=== PATIENT | male | born 1975 | race Caucasian/White ===

== ENCOUNTER → 2017-12-01 | Outpatient (CLI) | payer BC ==
[2017-12-01 17:11] LABS: BASO % 0.5 %; BASO ABS # 0.03 K/uL (0-0.2); EOS ABS # 0.06 K/uL (0-0.5); HEMATOCRIT 41.7 % (42-52); HEMOGLOBIN 14.6 g/dL (14.0-18.0); IG# 0.01 K/uL (0.00-0.02); LYMPH % 41.9 %; LYMPH ABS # 2.52 K/uL (1.2-3.4); MEAN CELL VOLUME 92.3 fL (80-100); MEAN CORPUSCULAR HEMOGLOBIN 32.3 pg (25-34); MEAN PLATELET VOLUME 9.4 fL (7.4-10.4); MONO % 9.5 %; MONO ABS # 0.57 K/uL (0.11-0.59); NEUT % 46.9 %; NEUT ABS # 2.83 K/uL (1.4-6.5); PLATELET COUNT 267 K/uL (130-400); RED CELL DISTRIBUTION WIDTH CV 12.5 % (11.5-14.5); RED CELL DISTRIBUTION WIDTH SD 42.3 fL (36.4-46.3); WHITE BLOOD COUNT 6.02 K/uL (4.8-10.8)
[2017-12-01 17:21] LABS: BLOOD UREA NITROGEN 14 mg/dl (7-18); CALCIUM 9.4 mg/dl (8.5-10.1); CARBON DIOXIDE 29 mmol/L (21-32); CREATININE 1.22 mg/dl (0.60-1.40); GLUCOSE 88 mg/dl (70-99); SODIUM 138 mmol/L (136-145)
== END | disposition home or self-care (01) ==
LOC: C.LABBC 15:38
PROVIDERS: ATTEND Orthopaedic Surgery
DX: Z01.812 Encounter for preprocedural laboratory examination (principal); M75.121 Complete rotator cuff tear or rupture of right shoulder, not specified as traumatic

== ENCOUNTER → 2018-01-12 | Outpatient (CLI) | payer BC ==
[2018-01-12 16:40] LABS: BASO % 0.1 %; BASO ABS # 0.01 K/uL (0-0.2); EOS % 0.7 %; EOS ABS # 0.05 K/uL (0-0.5); HEMATOCRIT 40.1 % (42-52); HEMOGLOBIN 14.3 g/dL (14.0-18.0); IG# 0.01 K/uL (0.00-0.02); LYMPH % 36.7 %; LYMPH ABS # 2.62 K/uL (1.2-3.4); MEAN CELL VOLUME 89.7 fL (80-100); MEAN CORPUSCULAR HGB CONC 35.7 g/dl (32-36); MEAN PLATELET VOLUME 8.9 fL (7.4-10.4); MONO % 10.7 %; MONO ABS # 0.76 K/uL (0.11-0.59); NEUT % 51.7 %; NEUT ABS # 3.68 K/uL (1.4-6.5); PLATELET COUNT 277 K/uL (130-400); RED CELL DISTRIBUTION WIDTH CV 12.4 % (11.5-14.5); RED CELL DISTRIBUTION WIDTH SD 40.5 fL (36.4-46.3); WHITE BLOOD COUNT 7.13 K/uL (4.8-10.8)
[2018-01-12 17:08] LABS: BLOOD UREA NITROGEN 16 mg/dl (7-18); CALCIUM 9.4 mg/dl (8.5-10.1); CARBON DIOXIDE 28 mmol/L (21-32); CREATININE 1.24 mg/dl (0.60-1.40); GLUCOSE 98 mg/dl (70-99); SODIUM 139 mmol/L (136-145)
== END | disposition home or self-care (01) ==
LOC: C.LAB 16:16
PROVIDERS: ATTEND Orthopaedic Surgery
DX: Z01.812 Encounter for preprocedural laboratory examination (principal); M75.121 Complete rotator cuff tear or rupture of right shoulder, not specified as traumatic

== ENCOUNTER → 2018-01-22 | Day surgery (SDC) | payer BC ==
[2017-12-08 14:44] VITALS: Ht 182.9 cm; Wt 104.5 kg
[~2018-01-22] VITALS: Ht 182.9 cm; Wt 104.5 kg
[~2018-01-22] MED LIST: ATROPINE SULFATE 0.1 MG/ML 5ML SYR IV PRN; BUPIVACAINE 0.25% 30 ML VIAL ONE; CEFAZOLIN 2000MG IV PUSH 15 ML IV SCH; DEXAMETHASONE SOD INJ 4 MG/ML VIAL ONE; EpHEDrine SULFATE INJ 50 MG/ML AMP IV PRN; EpINEphrine INJ 1MG/ML AMP 1 MG/ML AMP ONE; FENTANYL CITRATE INJ 50 MCG/1 ML 2 ML VIAL IV PRN; FENTANYL CITRATE INJ 50 MCG/1 ML 2 ML VIAL ONE; KETO10TA PO; KETOROLAC TROMETHAMINE 30 MG/ML VIAL IV. PRN; LACTATED RINGER'S 1000ML 1,000 ML IV SCH; LIDOCAINE HCL 2% 2 ML VIAL (20MG/ML) ONE; MIDAZOLAM HCL 1 MG/ML 2ML VIAL ONE; ONDANSETRON INJ 2 MG/ML 2 ML VIAL IV PRN; ONDANSETRON INJ 2 MG/ML 2 ML VIAL ONE; OXYC-57 PO; OXYCODONE/ACETAMINOPHEN 5-325 TAB PO PRN; PHENYLEPHRINE HCL INJ 10 MG/ML VIAL ONE; PROPOFOL IV EMULSION 10 MG/ML 20 ML VIAL IV ONE; ROPIVACAINE 0.5% 5 MG/ML 30 ML VIAL ONE; SODIUM CHLORIDE 0.9% 1000ML 1,000 ML IV SCH
--- NOTE | 2018-01-22 10:33 | History & Physical Bridge Note ---
H&P Re-Evaluation Bridge Note: I have examined the patient, reviewed the History & Physical and in the interval since the performance of the History & Physical I have noted the following changes of clinical significance: No changes noted
--- NOTE | 2018-01-22 14:50 | [facility] Post Operative Brief Note ---
Immediate Operative Summary Operative Date Jan 22, 2018. Pre-Operative Diagnosis Right shoulder large rotator cuff tear Post-Operative Diagnosis Same as preop Procedure(s) Performed Right Shoulder Arthroscopy, Superior Capsular Reconstruction With Graft, Biceps Tenodesis Surgeon Dr. Agudelo Process Improvement Analyst Surgeon(s) Denny Peterson PA-C Estimated Blood Loss 10ML Findings Consistent with Post-Op Diagnosis Specimens None Drains None Anesthesia Type General Regional Complication(s) none Disposition Disposition: Recovery Room / PACU
--- NOTE | 2018-01-22 15:16 | Discharge Instructions-SurgCtr ---
Discharge Instructions Date of Service Jan 22, 2018. Visit Reason for Visit: Right Shoulder Full Thickness Rotator Cuff Tear Discharge Discharge Diagnosis / Problem: SAME ABOVE Discharge Goals Goal(s): Decrease discomfort, Improve function, Increase independence Activity Recommendations Activity Limitations: as noted below Lifting Limitations: until after follow-up appointment Exercise/Sports Limitations: until after follow-up appointment Shower/Bathe: tomorrow Anesthesia . Post Anesthesia Instructions: If you have had General Anesthesia or IV Sedation: * Do not drive today. * Resume driving when surgeon permits. * Do not make important decisions or sign legal documents today. * Call surgeon for: 1. Temperature elevations greater than 101 degrees F. 2. Uncontrollable pain. 3. Excessive bleeding. 4. Persistent nausea and vomiting. 5. Medication intolerance (nausea, vomiting or rash). * For nausea and vomiting use only clear liquids such as: tea, soda, bouillon until nausea subsides, then gradually increase diet as tolerated. * If you have any concerns or questions, call your surgeon's office. If physician is unavailable and it is an emergency, call 911 or go to the nearest emergency room. . Instructions / Follow-Up Instructions / Follow-Up MEDICATIONS: * Resume previous medications unless instructed otherwise by your surgeon. * Always take pain medication on a full stomach or with food to avoid upset stomach. * Do not drink alcohol or drive while taking narcotics. * Ibuprofen or Tylenol may be taken if narcotic not needed. SPECIAL CARE INSTRUCTIONS: __ None _X_ Keep extremity elevated and iced x 48 hours; apply ice 20-30 minutes 8-10 times/day. May remove at night. __ Sling __24 hrs/day __ Remove at night _X_ Shoulder Immobilizer (MAY REMOVE AFTER 48 HOURS ONLY TO SHOWER) _X_ 24 hrs/day __ Remove at night _X_ Dressing __ Maintain until seen in office, may shower with plastic over site _X_ Remove dressings in 24-48 hours and then may shower _X_ Cover incisions with band-aids after showering _X_ Do not remove steri-strips Call physician if chills or temperature rises above 102 degrees or pain unrelieved by prescribed pain medications at . . Diet Recommendations Home Diet: no limitations Fluid Restriction: None Procedures Procedures Performed: Right Shoulder Arthroscopy, Superior Capsular Reconstruction With Graft, Biceps Tenodesis Pending Studies Studies pending at discharge: no Work Instructions Return To Work: after follow-up Lifting Limitations: NO LIFTING WITH RIGHT SHOULDER Medical Emergencies . Who to Call and When: Medical Emergencies: If at any time you feel your situation is an emergency, please call 911 immediately. . Non-Emergent Contact Non-Emergency issues call your: Primary Care Provider Call Non-Emergent contact if: you have a fever, temperature is above 101.5 . . "Provider Documentation" section prepared by Denny Peterson. .
--- NOTE | 2018-01-22 15:17 | OPERATIVE REPORT ---
DATE OF OPERATION: 01/22/2018 PREOPERATIVE DIAGNOSIS: Large chronic rotator cuff tear. POSTOPERATIVE DIAGNOSIS: Same. PROCEDURE: Right shoulder diagnostic arthroscopy with extensive debridement, superior capsular reconstruction and open subpec biceps tenodesis. SURGEON: Dr. Miguel Agudelo. SAND MILLER: Nabeel Peterson PA-C, whose assistance was necessary for retraction and positioning the arm. ANESTHESIA: General with a right interscalene nerve block. COMPLICATIONS: None. CONDITION: Stable to PACU. INDICATIONS: Ginger is a pleasant 42-year-old male who injured his shoulder while cutting down some trees for firewood. He has been noticing pain and weakness of his shoulder. MRI and clinical examination were diagnostic for a large retracted possibly chronic rotator cuff tear. After failing conservative treatment, he elected to undergo arthroscopy. DESCRIPTION OF PROCEDURE: On 01/22/2018, he arrived at [facility] for the above procedure. He was taken to the preoperative holding area and the operative extremity was identified and signed. He was given a preoperative antibiotic and a right interscalene nerve block. He was taken back to the operating room, laid on the table in supine position and put under general anesthesia. He was put into the beachchair position. The right shoulder was prepped and draped in sterile fashion. Time-out was done. The patient's operative extremity was properly identified. A scope was introduced in the posterior portal. Diagnostic arthroscopy showed no cartilage damage to the humeral head or the glenoid. The biceps tendon was intact. The subscapularis was intact. There was a tear of the entire supraspinatus and upper half of the infraspinatus. It was retracted back to the level of the glenoid. The scope was put into the subacromial space. A lateral portal was made. A shaver was used to do a complete subacromial and subdeltoid bursectomy. Significant time was spent doing extensive debridement debriding all adhesions in an effort to free up the rotator cuff. An additional anterolateral portal was made. Pati cannulas were placed in each lateral portals. Attempts were made at mobilizing the rotator cuff and bring it down to the articular footprint, but I was unable to get it down, even if I medialized the articular footprint. At this point, we decided to do a superior capsular reconstruction. The top of the glenoid was debrided back to bleeding bone and the top of the greater tuberosity was debrided back to bleeding bone. Two 3.0 mm anchors were placed in the glenoid and two 4.75 mm BioComposite SwiveLock suture anchors were placed on the greater tuberosity. Measurements were made between the anchors. An Arthrex ArthroFlex graft was then prepared on the back table. It was cut and holes were made in accordance to the distance of the anchors. One of the Pati cannulas was exchanged for a passport cannula. All the sutures were pulled through the passport cannula and then through the graft. A tension slide technique was then used to deliver the graft into the joint and to snug down the medial row. The additional medial row sutures were then tied. The FiberTape sutures from the lateral row were then brought down to 1 of 2 lateral row anchors to a lateral row SwiveLock suture anchor. This gave a very nice repair laterally. Two stay sutures were placed in the posterior interval. The shoulder was brought through a full range of motion. I was very happy with the tension of the graft. Multiple pictures were taken. Arthroscopic instruments removed from the shoulder. Attention was turned to an open biceps tenodesis. A small incision was made over the inferior border of the pectoralis major. Dissection was taken down through the fascia and long head of biceps tendon was delivered out of the wound. It was tenotomized earlier intraarticularly during the case. The tendon was then whip stitched at the anticipated level of tenodesis and the remainder of the tendon was discarded. A 6 mm hole was drilled in the bicipital groove and the biceps tendon was tenodesed with an Arthrex biceps button and passed in the posterior cortex in a tension slide technique to deliver the tendon into the 6 mm hole. This gave good fixation. The tails were then tied. The wound was then irrigated, closed with 3-0 Vicryl and running 3-0 Monocryl. Steri-strips were placed. Portal sites were closed with 3-0 nylon. He then placed in a soft dressing and abduction arm sling. He was then extubated, transferred [facility] and taken to postanesthesia care unit in stable condition. He tolerated the procedure well. This case took more than twice as long as a normal rotator cuff repair. It was a complete superior capsular reconstruction. Anchors had to be placed both medially and laterally. I attest to the content of the Intraoperative Record and any orders documented therein. Any exception s are noted below.
[2018-01-22 16:00] VITALS: BP 128/72; PULSE 85; TEMP 36.5; O2SAT 95
--- NOTE | 2018-01-22 16:11 | Anesthesia Progress Nt - [facility] ---
Anesthesia Post Op Note Date & Time Jan 22, 2018 at 16:11 Vital Signs Pain Intensity: 0 Vital Signs Past 12 Hours Date Time Temp Pulse Resp B/P (MAP) Pulse Ox O2 Delivery O2 Flow Rate FiO2 01/22/18 15:51 88 19 93 01/22/18 15:51 89 19 01/22/18 15:50 124/84 01/22/18 15:50 36.6 88 20 124/84 93 Room Air 01/22/18 15:46 88 21 01/22/18 15:46 88 21 93 01/22/18 15:45 123/84 01/22/18 15:41 91 22 94 01/22/18 15:41 90 22 01/22/18 15:40 118/79 01/22/18 15:36 86 19 96 01/22/18 15:36 86 19 01/22/18 15:35 126/73 01/22/18 15:31 87 19 96 01/22/18 15:31 88 19 01/22/18 15:30 113/74 01/22/18 15:26 87 20 96 01/22/18 15:26 87 20 01/22/18 15:25 112/75 01/22/18 15:21 89 21 95 01/22/18 15:21 89 21 01/22/18 15:20 115/77 01/22/18 15:16 93 22 01/22/18 15:16 92 22 119/76 95 01/22/18 15:15 36.9 93 16 119/76 96 Mask 6 01/22/18 11:56 12 01/22/18 11:55 85 01/22/18 11:55 87 20 127/80 97 01/22/18 11:50 86 01/22/18 11:50 81 18 131/70 97 01/22/18 11:47 Oxymask 5 01/22/18 11:45 82 01/22/18 11:45 82 21 126/83 100 01/22/18 11:43 126/81 01/22/18 11:40 77 0 95 01/22/18 11:40 79 01/22/18 11:35 71 97 01/22/18 11:35 71 01/22/18 11:13 36.5 80 20 147/91 (109) 97 Room Air Notes Mental Status: alert / awake / arousable, participated in evaluation Pt Amnestic to Procedure: Yes Nausea / Vomiting: adequately controlled Pain: adequately controlled Airway Patency, RR, SpO2: stable & adequate BP & HR: stable & adequate Hydration State: stable & adequate Anesthetic Complications: no major complications apparent
== END | disposition home or self-care (01) ==
LOC: X.SURG 10:50
PROVIDERS: ATTEND Orthopaedic Surgery
DX: S46.011A Strain of muscle(s) and tendon(s) of the rotator cuff of right shoulder, initial encounter (principal); X58.XXXA Exposure to other specified factors, initial encounter; Y93.89 Activity, other specified; Z88.2 Allergy status to sulfonamides; Z82.49 Family history of ischemic heart disease and other diseases of the circulatory system; Z82.3 Family history of stroke; Z83.3 Family history of diabetes mellitus

== ENCOUNTER 2021-07-19 10:22 | Inpatient (IN) ==
[2021-07-19] MEDS ORDERED: BENZONATATE 100 MG CAPSULE PO ONE (11:04)
[2021-07-19] MEDS ORDERED: dexAMETHasone 6 MG in SYRINGE 0 ML IV ONE (11:04)
[2021-07-19] MEDS ORDERED: SODIUM CHLORIDE 0.9% 1000ML 1,000 ML IV ONE (11:04)
--- NOTE | 2021-07-19 11:13 | Emergency Department Note ---
History of Present Illness General Chief complaint: Shortness of Breath/Dyspnea Stated complaint: SOB Time Seen by Provider: 07/19/21 10:53 History of Present Illness Maximum Pain Intensity: 6 This 45-year-old male patient presents to the emergency department today for evaluation of shortness of breath. The patient states "my legs do not feel right, it feels like there is something in there". The patient states that symptoms began 9 days ago. He had cough, shortness of breath, and congestion. Patient states he is generally feeling ill and is experiencing worsening shortness of breath over the past day or 2. He was seen 2 days ago at [facility] in the emergency department where he had chest x-ray and COVID-19 testing completed. He has not received results. He states "they clearly did not want me there". The patient is not vaccinated for COVID-19. He has been taking "Advil and ibuprofen" without relief of his symptoms. He denies consistently taking cold medicine. He denies any nausea or vomiting. No numbness, tingling, weakness. He rates his generalized discomfort 4/10. Home Medications Medication Instructions Recorded Confirmed Type Ketorolac Tromethamine (TORADOL) 10 mg PO Q8 PRN #15 tab 01/22/18 Rx OXYCODONE/ACETAMINOPHEN 5MG/325MG 1 - 2 tabs PO Q6 PRN #40 tab 01/22/18 Rx (PERCOCET 5MG/325MG) No Known Home Medications 07/19/21 07/19/21 History Allergies Allergy/AdvReac Type Severity Reaction Status Date / Time Sulfa (Sulfonamide Allergy Unknown HIVES AND Verified 07/19/21 13:18 Antibiotics) FINGER SWELLING Past Med/Surg History Medical History No pertinent past medical history Surgical History (Updated 07/19/21 @ 13:42 by MAAME Jennings) H/O repair of rotator cuff Social History Smoking Status: Never smoker Feels Safe at Home: Yes Review of Systems A total of 10 systems reviewed and were otherwise negative Physical Exam Vital Signs Vital Signs - 24 hr 07/19/21 10:30 07/19/21 11:35 07/19/21 11:38 Temperature 37.4 C Temperature Source Oral Pulse Rate 96 H 90 94 H Pulse Rate from SpO2 Sensor 93 H Respiratory Rate 20 20 22 Respiratory Effort / Characteristics Non-Labored Spontaneous Respiratory Depth Normal Respiratory Pattern Blood Pressure 113/75 109/71 Blood Pressure Mean 87 83 Blood Pressure Position Sitting Pulse Oximetry 89 L 89 L 93 Oxygen Delivery Method Room Air Nasal Cannula Nasal Cannula Oxygen Flow Rate 2 2 Sepsis Recent Fever Within 48 Hours No Sepsis New/Unexplained Change in Mental Status N/A Sepsis Action Taken by Nursing No Action Required Oxygen Flow Rate - Titration 2 Pulse Oximetry Post Tiitration 94 07/19/21 12:45 Temperature Temperature Source Pulse Rate Pulse Rate from SpO2 Sensor Respiratory Rate Respiratory Effort / Characteristics Non-Labored Spontaneous Respiratory Depth Normal Respiratory Pattern Regular Blood Pressure Blood Pressure Mean Blood Pressure Position Pulse Oximetry Oxygen Delivery Method Nasal Cannula Oxygen Flow Rate 2 Sepsis Recent Fever Within 48 Hours Sepsis New/Unexplained Change in Mental Status Sepsis Action Taken by Nursing Oxygen Flow Rate - Titration Pulse Oximetry Post Tiitration VITALS: Vitals are noted on the nurse's note and reviewed by myself. Patient is hypoxic with an O2 saturation of 89% on room air. GENERAL: This is a 45-year-old white male, in no acute distress, nondiaphoretic, well-developed well-nourished. SKIN: The skin was without rashes, erythema, edema, or bruising. There is no tenting of the skin. Capillary refill less than 2 seconds. HEAD: Normocephalic atraumatic. EYES: Conjunctivae without injection, sclerae without icterus. NECK: Supple without nuchal rigidity. No lymphadenopathy. Cervical spine is nontender. No JVD. HEART: Regular rate and rhythm without murmurs gallops or rubs. LUNGS: Clear to auscultation bilaterally without wheezes, rales or rhonchi. No retractions or accessory muscle use. ABDOMEN: Positive bowel sounds x 4. Soft, nontender, without masses or orga nomegaly. Allen sign negative. No guarding or rebound tenderness. MUSCULOSKELETAL: No muscle atrophy, erythema, or edema noted. Full range of motion without joint tenderness in all extremities. No tenderness to palpation. Normal gait. Strength 5/5 throughout. Negative Homans' sign bilaterally. NEURO: Patient was alert and oriented to person place and time. No focal neurological deficits. Course Course The patient was seen and evaluated as above. An order was placed for continuous cardiac monitoring. The monitor shows a normal sinus rhythm at a rate of 96 bpm. IV access obtained, labs drawn. Patient medicated IV Decadron, IV fluids, p.o. benzonatate. Imaging performed and reviewed by myself and radiologist as noted. Labs reviewed by myself. I discussed the findings with the patient at bedside. I discussed the case with my attending. I discussed the case with Dr. Palomares. He did agree to see and evaluate the patient for admission. Administered Medications Discontinued Medications Benzonatate (Benzonatate 100 Mg Capsule) 200 mg PO NOW ONE Stop: 07/19/21 11:05 Last Admin: 07/19/21 12:51 Dose: 200 mg Documented by: [id number] Dexamethasone (Dexamethasone Sod Inj 4 Mg/Ml Vial) Confirm Administered Dose 8 mg .ROUTE .STK-MED ONE Stop: 07/19/21 12:42 Last Admin: 07/19/21 12:51 Dose: 6 mg Documented by: [id number] Sodium Chloride (Nss 1000ml) 1,000 mls @ 999 mls/hr IV .Q1H1M ONE Stop: 07/19/21 12:04 Last Infusion: 07/19/21 13:44 Dose: 0 mls/hr Documented by: [id number] Admin: 07/19/21 12:35 Dose: 999 mls/hr Documented by: [id number] Dexamethasone 6 mg/ Syringe 1.5 mls @ 1 mls/min IV ONE ONE Stop: 07/19/21 11:05 Last Admin: 07/19/21 12:51 Dose: Not Given Documented by: [id number] Medical Decision Making Differential Diagnosis Reactive airway disease, pneumonia, pneumothorax, COPD, CHF, infections, cardiac ischemia, pulmonary embolism, musculoskeletal, gastrointestinal, COVID-19, as well as other pathologies. Medical Records Attestation: I reviewed the patient's medical records. Home Medications Current Medication List: was personally reviewed by me Laboratory Data Attestation: I reviewed the patient's lab results. No leukocytosis, anemia, thrombocytopenia. Renal, hepatic function, and electrolytes without significant abnormality. Troponin negative. Proximal stent 0.7. COVID-19 testing positive. Result diagrams: 07/19/21 11:35 07/19/21 11:35 Lab Results 07/19/21 07/19/21 07/19/21 Range/Units 11:35 11:35 11:35 WBC 6.57 (4.8-10.8) K/uL RBC 4.38 L (4.7-6.1) M/uL Hgb 14.0 (14.0-18.0) g/dL Hct 41.0 L (42-52) % MCV 93.6 (80-100) fL MCH 32.0 (25-34) pg MCHC 34.1 (32-36) g/dL RDW Std Deviation 43.8 (36.4-46.3) fL RDW Coeff of Werner 12.7 (11.5-14.5) % Plt Count 221 (130-400) K/uL MPV 9.7 (7.4-10.4) fL Immature Gran % (Auto) 0.2 % Neut % (Auto) 84.0 % Lymph % (Auto) 10.0 % [place] % (Auto) 5.6 % Eos % (Auto) 0.0 % Baso % (Auto) 0.2 % Neut # (Auto) 5.52 (1.4-6.5) K/uL Lymph # (Auto) 0.66 L (1.2-3.4) K/uL [place] # (Auto) 0.37 (0.11-0.59) K/uL Eos # (Auto) 0.00 (0-0.5) K/uL Baso # (Auto) 0.01 (0-0.2) K/uL Immature Gran # (Auto) 0.01 (0.00-0.02) K/uL Fibrinogen (184-400) mg/dl Sodium 134 L (136-145) mmol/L Potassium 3.4 L (3.5-5.1) mmol/L Chloride 102 (98-107) mmol/L Carbon Dioxide 27 (21-32) mmol/L Anion Gap 5.0 (3-11) BUN 17 (7-18) mg/dl Creatinine 1.13 (0.6-1.4) mg/dl Est Cr Clr Drug Dosing 101.0 ml/min Est GFR ( Amer) 89.2 ml/min Est GFR (Non-Af Amer) 77.0 ml/min BUN/Creatinine Ratio 15.0 (10-20) Glucose 116 H (70-99) mg/dl Calcium 8.6 (8.5-10.1) mg/dl Magnesium 2.1 (1.8-2.4) mg/dl Ferritin (8-388) ng/ml Total Bilirubin 0.9 (0.2-1) mg/dl AST 80 H (15-37) U/L ALT 56 (12-78) U/L Alkaline Phosphatase 39 L (45-117) U/L Lactate Dehydrogenase (87-241) U/L Troponin I < 0.015 (0-0.045) ng/ml C-Reactive Protein (0-0.29) mg/dl NT-Pro-B Natriuret Pep (0-450) pg/ml Total Protein 7.4 (6.4-8.2) gm/dl Albumin 3.6 (3.4-5.0) gm/dl Globulin 3.8 (2.5-4.0) gm/dl Albumin/Globulin Ratio 0.9 (0.9-2) Lipase 135 (73-393) U/L Procalcitonin 0.07 (0-0.5) ng/ml COVID-19 Eval Order SARS-CoV-2 (PCR) (Negative) 07/19/21 07/19/21 07/19/21 Range/Units 11:40 11:40 13:13 WBC (4.8-10.8) K/uL RBC (4.7-6.1) M/uL Hgb (14.0-18.0) g/dL Hct (42-52) % MCV (80-100) fL MCH (25-34) pg MCHC (32-36) g/dL RDW Std Deviation (36.4-46.3) fL RDW Coeff of Werner (11.5-14.5) % Plt Count (130-400) K/uL MPV (7.4-10.4) fL Immature Gran % (Auto) % Neut % (Auto) % Lymph % (Auto) % [place] % (Auto) % Eos % (Auto) % Baso % (Auto) % Neut # (Auto) (1.4-6.5) K/uL Lymph # (Auto) (1.2-3.4) K/uL [place] # (Auto) (0.11-0.59) K/uL Eos # (Auto) (0-0.5) K/uL Baso # (Auto) (0-0.2) K/uL Immature Gran # (Auto) (0.00-0.02) K/uL Fibrinogen 639 H (184-400) mg/dl Sodium (136-145) mmol/L Potassium (3.5-5.1) mmol/L Chloride (98-107) mmol/L Carbon Dioxide (21-32) mmol/L Anion Gap (3-11) BUN (7-18) mg/dl Creatinine (0.6-1.4) mg/dl Est Cr Clr Drug Dosing ml/min Est GFR ( Amer) ml/min Est GFR (Non-Af Amer) ml/min BUN/Creatinine Ratio (10-20) Glucose (70-99) mg/dl Calcium (8.5-10.1) mg/dl Magnesium (1.8-2.4) mg/dl Ferritin (8-388) ng/ml Total Bilirubin (0.2-1) mg/dl AST (15-37) U/L ALT (12-78) U/L Alkaline Phosphatase (45-117) U/L Lactate Dehydrogenase (87-241) U/L Troponin I (0-0.045) ng/ml C-Reactive Protein (0-0.29) mg/dl NT-Pro-B Natriuret Pep (0-450) pg/ml Total Protein (6.4-8.2) gm/dl Albumin (3.4-5.0) gm/dl Globulin (2.5-4.0) gm/dl Albumin/Globulin Ratio (0.9-2) Lipase (73-393) U/L Procalcitonin (0-0.5) ng/ml COVID-19 Eval Order Covid19 at [facility] SARS-CoV-2 (PCR) POSITIVE A* (Negative) 07/19/21 07/19/21 Range/Units 13:13 13:13 WBC (4.8-10.8) K/uL RBC (4.7-6.1) M/uL Hgb (14.0-18.0) g/dL Hct (42-52) % MCV (80-100) fL MCH (25-34) pg MCHC (32-36) g/dL RDW Std Deviation (36.4-46.3) fL RDW Coeff of Werner (11.5-14.5) % Plt Count (130-400) K/uL MPV (7.4-10.4) fL Immature Gran % (Auto) % Neut % (Auto) % Lymph % (Auto) % [place] % (Auto) % Eos % (Auto) % Baso % (Auto) % Neut # (Auto) (1.4-6.5) K/uL Lymph # (Auto) (1.2-3.4) K/uL [place] # (Auto) (0.11-0.59) K/uL Eos # (Auto) (0-0.5) K/uL Baso # (Auto) (0-0.2) K/uL Immature Gran # (Auto) (0.00-0.02) K/uL Fibrinogen (184-400) mg/dl Sodium (136-145) mmol/L Potassium (3.5-5.1) mmol/L Chloride (98-107) mmol/L Carbon Dioxide (21-32) mmol/L Anion Gap (3-11) BUN (7-18) mg/dl Creatinine (0.6-1.4) mg/dl Est Cr Clr Drug Dosing ml/min Est GFR ( Amer) ml/min Est GFR (Non-Af Amer) ml/min BUN/Creatinine Ratio (10-20) Glucose (70-99) mg/dl Calcium (8.5-10.1) mg/dl Magnesium (1.8-2.4) mg/dl Ferritin 1530.6 H (8-388) ng/ml Total Bilirubin (0.2-1) mg/dl AST (15-37) U/L ALT (12-78) U/L Alkaline Phosphatase (45-117) U/L Lactate Dehydrogenase 429 H (87-241) U/L Troponin I (0-0.045) ng/ml C-Reactive Protein 9.45 H (0-0.29) mg/dl NT-Pro-B Natriuret Pep 36 (0-450) pg/ml Total Protein (6.4-8.2) gm/dl Albumin (3.4-5.0) gm/dl Globulin (2.5-4.0) gm/dl Albumin/Globulin Ratio (0.9-2) Lipase (73-393) U/L Procalcitonin (0-0.5) ng/ml COVID-19 Eval Order SARS-CoV-2 (PCR) (Negative) Imaging Data Radiologist's Impression: Chest X-Ray 07/19/21 11:05 SINGLE VIEW CHEST CLINICAL HISTORY: Cough FINDINGS: An AP, portable, upright chest radiograph is obtained No prior studies are available for comparison at the time of dictation. The cardiomediastinal silhouette is unremarkable. Multifocal airspace consolidation is seen throughout both lungs. No large pleural effusion or pneumothorax is identified. The bony thorax is grossly intact. IMPRESSION: Multifocal airspace consolidation is typical for pneumonia. Clinical correlation will be required and radiographic follow-up to resolution is recommended. ACT 112: Negative or not required by law. Electronically signed by: Armond Cano M.D. 07/19/2021 11:25 AM ECG Data Attestation: I personally reviewed and interpreted this ECG as follows: Indication: + SOB/dyspnea Rate (beats per minute): 90 Rhythm: + normal sinus ECG [place]: + Normal ECG ST segments: no ST depression, no ST elevation or no T-wave inversions Comparison ECG Date: no prior available Blood Pressure Blood Pressure Findings: Normal blood pressure MDM Narrative This 45-year-old male patient presents to the emergency department today for evaluation of worsening shortness of breath and coughing. Patient was found to have COVID-19. He was hypoxic with an O2 saturation of 89% on room air. He did desat intermittently on the oxygen as well. Patient without leukocytosis, anemia, thrombocytopenia. Renal, hepatic function and electrolytes without significant abnormalities. Patient will be admitted to the hospitalist service regarding the hypoxia in the setting of COVID-19. Please see hospitalist dictation regarding ongoing management and care of this patient. The chart was completed utilizing [employer] Speech voice recognition software. Gra mmatical errors, random word insertions, pronoun errors, and incomplete sentences are an occasional consequence of this system due to software limitations, ambient noise, and hardware issues. Any formal questions or concerns about the content, text, or information contained within the body of this dictation should be directly addressed to the provider for clarification. Impression & Plan Hypoxia, COVID-19 Discharge Plan Visit Data Chief Complaint: Shortness of Breath/Dyspnea Stated Complaint: SOB ED Provider: Miguel Bowers ED Midlevel Provider: Chel Peters Discharge Problem: Hypoxia, COVID-19 Patient Disposition: Admitted As Inpatient Forms Stand Alone Forms: [facility] Prescriptions Prescriptions: No Action Ketorolac Tromethamine (TORADOL) 10 MG tablet 10 mg PO Q8 PRN (Reason: Pain) Qty: 15 RF: 0 OXYCODONE/ACETAMINOPHEN 5MG/325MG (PERCOCET 5MG/325MG) tablet 1 - 2 tabs PO Q6 PRN (Reason: Pain) Qty: 40 RF: 0 No Known Home Medications RF: 0 Referrals Referrals: PCP,NO [Primary Care Provider] -
--- NOTE | 2021-07-19 11:26 | XRay Report ---
SINGLE VIEW CHEST CLINICAL HISTORY: Cough FINDINGS: An AP, portable, upright chest radiograph is obtained No prior studies are available for co mparison at the time of dictation. The cardiomediastinal silhouette is unremarkable. Multifocal airsp elvia consolidation is seen throughout both lungs. No large pleural effusion or pneumothorax is identif ied. The bony thorax is grossly intact. IMPRESSION: Multifocal airspace consolidation is typical for pneumonia. Clinical correlation will be required and radiographic follow-up to resolution is recommended. ACT 112: Negative or not required by law. Electronically signed by: Armond Cano M.D. 07/19/2021 11:25 AM
[2021-07-19 11:57] LABS: Basophils # (auto) 0.01 K/uL (0-0.2); Basophils % (auto) 0.2 %; Immature Granulocytes # (auto) 0.01 K/uL (0.00-0.02); Immature Granulocytes % (auto) 0.2 %; Lymphocytes # (auto) 0.66 K/uL (1.2-3.4); Mean Corpuscular Hgb Conc 34.1 g/dL (32-36); Mean Corpuscular Volume 93.6 fL (80-100); Mean Platelet Volume 9.7 fL (7.4-10.4); Monocytes # (auto) 0.37 K/uL (0.11-0.59); Monocytes % (auto) 5.6 %; Neutrophils # (auto) 5.52 K/uL (1.4-6.5); Platelet Count 221 K/uL (130-400); RDW Coefficient of Variation 12.7 % (11.5-14.5); RDW Standard Deviation 43.8 fL (36.4-46.3); Red Blood Count 4.38 M/uL (4.7-6.1); White Blood Count 6.57 K/uL (4.8-10.8)
[2021-07-19 12:19] LABS: Alanine Aminotransferase 56 U/L (12-78); Albumin Level 3.6 gm/dl (3.4-5.0); Aspartate Aminotransferase 80 U/L (15-37); Blood Urea Nitrogen 17 mg/dl (7-18); Calcium 8.6 mg/dl (8.5-10.1); Carbon Dioxide 27 mmol/L (21-32); Chloride 102 mmol/L (98-107); Est GFR (African American) 89.2 ml/min; Glucose 116 mg/dl (70-99); Lipase 135 U/L (73-393); Magnesium 2.1 mg/dl (1.8-2.4); Potassium 3.4 mmol/L (3.5-5.1); Sodium 134 mmol/L (136-145)
[2021-07-19 12:24] LABS: Albumin Globulin Ratio 0.9 (0.9-2); Alkaline Phosphatase 39 U/L (45-117); Bilirubin,Total 0.9 mg/dl (0.2-1); Globulin 3.8 gm/dl (2.5-4.0); Total Protein 7.4 gm/dl (6.4-8.2); Troponin I < 0.015 ng/ml (0-0.045)
[2021-07-19] MEDS ORDERED: DEXAMETHASONE SOD INJ 4 MG/ML VIAL ONE (12:41)
[2021-07-19] MEDS ORDERED: POLYETHYLENE (MIRALAX) 17 GM PACK PO PRN (13:20)
[2021-07-19] MEDS ORDERED: ONDANSETRON INJ 2 MG/ML 2 ML VIAL IV PRN (13:20)
[2021-07-19] MEDS ORDERED: ACETAMINOPHEN 325 MG TAB PO PRN (13:20)
[2021-07-19] MEDS ORDERED: REMDESIVIR 200 MG in SODIUM CHLORIDE 0.9% 210 ML IV ONE (13:30)
[2021-07-19] MEDS ORDERED: POTASSIUM CHLORIDE CRTAB 20 MEQ TABCR PO STA (13:51)
--- NOTE | 2021-07-19 13:53 | History & Physical Report ---
Date of Service July 19, 2021 Assessment & Plan (1) COVID-19: Plan: COVID day 9 - patient got tested on onset of his symptoms last week - Not vaccinated - CRP, BNP, PCT, Ferritin, LDH, Fibrongen pending - Continue Decadron - Albuterol inhaler PRN - Azithromycin 500mg then 250 daily - Self rotation/proning therapy -Lovenox 0.5mg/kg BID - can adjust on severity of illness and inflammatory markers as warranted - Diurese if clinically relevant (2) Hypoxia: Plan: Hypoxia with respiratory failture with RR 30, [id number]% on 2LNC - Titrate FIO2- for SPo2 >92% - NC, HFNC, CPAP/BIPAP, Intubation if needed - self rotation therapy (3) Obesity: Plan: Encourgae weight loss behavior and screening/benefit for senior care CVD benefits (4) Hypokalemia: Plan: 40 PO KCL now - decreased PO intake (5) Hypovolemia: Plan: As above recieved 1L 0.9% saline in the EMD - Continue to encourage Euvolemia - Once Euvolemia obtained follow clinically with Oxyngeation requirements History of Present Illness Primary Care Provider: NO PCP 45 YOM with no past medical history reported, not on any medications at home. Surgical history of rotator cuff repair. Patient comes in today after testing (+) for COVID on the . Patient is not vaccinated. He feels that he contracted the virus on his trip to [facility] for the race last Friday. The patient lives at home with his and two kids. He reports that his is feeling Ok and one of their kids is sick. He comes in today for increased dyspnea and fatigue, with decreased oral intake. He continues to have fevers at home, and body aches, with productive cough. He has had diarrhea which has resolved. Patient does not smoke or drink and as above on no medications at home. We discussed therapeutic options to include Remdisivir and is aware that with his time of onset he may not have any therapeutic effect. Patient wishes to receive Remdisivir. We discussed self rotation and proning therapy. Will continue his Decardorn, will add on Azithromycin, albuterol inhalers. Inflammatory markers including PCT have been sent. Patient is not vaccinated and is COVID POSITIVE on his admission. Allergies Allergy/AdvReac Type Severity Reaction Status Date / Time Sulfa (Sulfonamide Allergy Unknown HIVES AND Verified 07/19/21 13:18 Antibiotics) FINGER SWELLING Home Medications Medication Instructions Recorded Confirmed Type Ketorolac Tromethamine (TORADOL) 10 mg PO Q8 PRN #15 tab 01/22/18 Rx OXYCODONE/ACETAMINOPHEN 5MG/325MG 1 - 2 tabs PO Q6 PRN #40 tab 01/22/18 Rx (PERCOCET 5MG/325MG) No Known Home Medications 07/19/21 07/19/21 History Past Med/Surg History Medical History (Updated 07/19/21 @ 13:46 by MAAME Jennings) No pertinent past medical history Surgical History (Updated 07/19/21 @ 13:42 by MAAME Jennings) H/O repair of rotator cuff Social History Smoking Status: Never smoker Feels Safe at Home: Yes Review of Systems Review of Systems: REVIEW OF SYSTEMS: Constitutional: (+) fever, sweats or chills Eyes: No diplopia, no worsening or blurred vision ENT: normal hearing, no trouble swallowing Respiratory: (+) cough, sputum, dyspnea at rest or on exertion Cardiovascular: No chest pain, tightness or palpitations Abdomen: (+) diarrhea resovled, No pain, nausea, vomiting, or constipation Musculoskeletal: (+) joint pain, calf pain, swelling Neurologic: No weakness, numbness/tingling, or balance problems Psychiatric: No anxiety or depression Skin: No rash or itch Physical Exam Physical Exam: PHYSICAL EXAM: General: fatigued, awake, alert, no apparent distress Head: Normocephalic, atraumatic ENT: PERRL, EOMI, no pharyngeal exudate, mucous membranes moist Neuro: AAO x 3, speech clear and appropriate, strength intact bilaterally 5/5, sensation intact and equal all extremities and dermatomes, no pronator drift Chest: equal rise and fall of the chest, no accessory muscle use, no heaves or thrills, tachypneic decreased air movement in the bases scattered crackles, on 2LNC, Cardiac: Regular rate and rhythm, telemetry reviewed, skin warm dry, cap refill <3 seconds, peripheral pulses +2 no JVD, no murmur, no edema GI: NABS x 4 quadrants, soft, nontender to palpation, no rebound, guarding or tenderness : Spontaneously voiding, no pain, no CVA tenderness, Extremities: Normal inspection, no peripheral edema or erythema, calfs nontender to palpation Psych: Normal mood and affect Skin: no rash or erythema Results & Data Results & Data ([facility] [place]) Vital Signs (Past 12 Hours) Vital Signs Temp Pulse Resp BP Pulse Ox 07/19/21 11:38 94 H 22 109/71 93 07/19/21 11:35 90 20 89 L 07/19/21 10:30 37.4 C 96 H 20 113/75 89 L Laboratory Results Abnormal lab results 07/19/21 07/19/21 07/19/21 Range/Units 11:35 11:35 11:40 RBC 4.38 L (4.7-6.1) M/uL Hct 41.0 L (42-52) % Lymph # (Auto) 0.66 L (1.2-3.4) K/uL Sodium 134 L (136-145) mmol/L Potassium 3.4 L (3.5-5.1) mmol/L Glucose 116 H (70-99) mg/dl AST 80 H (15-37) U/L Alkaline Phosphatase 39 L (45-117) U/L SARS-CoV-2 (PCR) POSITIVE A* (Negative) Diagnostic Findings Chest X-Ray 07/19/21 11:05 SINGLE VIEW CHEST CLINICAL HISTORY: Cough FINDINGS: An AP, portable, upright chest radiograph is obtained No prior studies are available for comparison at the time of dictation. The cardiomediastinal silhouette is unremarkable. Multifocal airspace consolidation is seen throughout both lungs. No large pleural effusion or pneumothorax is identified. The bony thorax is grossly intact. IMPRESSION: Multifocal airspace consolidation is typical for pneumonia. Clinical correlation will be required and radiographic follow-up to resolution is recommended. ACT 112: Negative or not required by law. Electronically signed by: Armond Cano M.D. 07/19/2021 11:25 AM Medications Administered Discontinued Medications Benzonatate (Benzonatate 100 Mg Capsule) 200 mg PO NOW ONE Stop: 07/19/21 11:05 Last Admin: 07/19/21 12:51 Dose: 200 mg Documented by: [id number] Dexamethasone (Dexamethasone Sod Inj 4 Mg/Ml Vial) Confirm Administered Dose 8 mg .ROUTE .STK-MED ONE Stop: 07/19/21 12:42 Last Admin: 07/19/21 12:51 Dose: 6 mg Documented by: [id number] Sodium Chloride (Nss 1000ml) 1,000 mls @ 999 mls/hr IV .Q1H1M ONE Stop: 07/19/21 12:04 Last Infusion: 07/19/21 13:44 Dose: 0 mls/hr Documented by: [id number] Admin: 07/19/21 12:35 Dose: 999 mls/hr Documented by: [id number] Dexamethasone 6 mg/ Syringe 1.5 mls @ 1 mls/min IV ONE ONE Stop: 07/19/21 11:05 Last Admin: 07/19/21 12:51 Dose: Not Given Documented by: [id number] ECG Additional Comments: Normal sinus rhythm Incomplete right bundle branch block Borderline ECG No previous ECGs available Code Status & VTE Plan Code Status CODE: FULL VTE: SCDS, Lovenox 0.5mg/Sq BID VTE Prophylaxis Plan VTE Prophylaxis will be ordered: Yes PG Care Time/CCT Total # of Minutes Spent Total Time Spent with Patient: Total time spent is greater than 50% in coordination of care (as documented) at patient's floor/unit and/or counseling patient: Coding Level of Care Code 73315 Initial Inpt Care Lvl 3 Diagnoses COVID-19 U07.1 Hypoxia R09.02 Obesity E66.9 Hypokalemia E87.6 Hypovolemia E86.1
[2021-07-19 13:54] LABS: C Reactive Protein 9.45 mg/dl (0-0.29); Ferritin 1530.6 ng/ml (8-388); Fibrinogen 639 mg/dl (184-400)
[2021-07-19] MEDS: SODIUM CHLORIDE 0.9% 10ML FLUSH IV SCH (16:56)
--- NOTE | 2021-07-19 18:04 | Electrocardiogram Report ---
Test Reason : Blood Pressure : / mmHG Vent. Rate : 090 BPM Atrial Rate : 090 BPM P-R Int : 156 ms QRS Dur : 098 ms QT Int : 354 ms P-R-T Axes : 027 -10 014 degrees QTc Int : 433 ms Normal sinus rhythm Incomplete right bundle branch block Borderline ECG No previous ECGs available Confirmed by Sal Tolbert ([id number]) on 07/19/2021 6:04:00 PM Referred By: REFERRED SELF Confirmed By:Sal Tolbert
[2021-07-19 19:59] LABS: Appearance Urine Clear (Clear); Bacteria Urine Automated Negative (Negative); Blood Urine Trace (Negative); Color Urine Dark Yellow; Epithelial Cell Urine Auto 20-30 /lpf (0-5); Glucose Urine UA Negative (Negative); Ketones Urine 3+ (Negative); Leukocyte Esterase Urine Negative (Negative); Nitrite Urine Negative (Negative); Protein Urine 2+ (Negative); RBC Urine Automated 0-4 /hpf (0-4); Specific Gravity Urine 1.041 (1.000-1.030); Urobilinogen Urine Positive (Negative)
[2021-07-19 20:05] LABS: Bilirubin Urine 1+ (Negative)
[2021-07-19] MEDS ORDERED: ALBUTEROL 0.083% NEBU SOLN 3 ML VIAL NEB PRN (22:36)
[2021-07-19] MEDS ORDERED: AZITHROMYCIN 250 MG TAB PO STA (22:54)
[2021-07-19] MEDS: dexAMETHasone 6 MG in SYRINGE 0 ML IV SCH (23:25)
[2021-07-19] MEDS: ENOXAPARIN INJ 60 MG/0.6 ML SYR SQ SCH (23:26)
[2021-07-20 08:44] LABS: Basophils # (auto) 0.01 K/uL (0-0.2); Basophils % (auto) 0.2 %; Hematocrit (blood only) 37.9 % (42-52); Hemoglobin 12.7 g/dL (14.0-18.0); Immature Granulocytes # (auto) 0.01 K/uL (0.00-0.02); Immature Granulocytes % (auto) 0.2 %; Lymphocytes # (auto) 0.79 K/uL (1.2-3.4); Lymphocytes % (auto) 12.2 %; Mean Corpuscular Hemoglobin 31.8 pg (25-34); Mean Corpuscular Hgb Conc 33.5 g/dL (32-36); Mean Corpuscular Volume 94.8 fL (80-100); Mean Platelet Volume 9.5 fL (7.4-10.4); Monocytes # (auto) 0.36 K/uL (0.11-0.59); Monocytes % (auto) 5.6 %; Neutrophils # (auto) 5.29 K/uL (1.4-6.5); Neutrophils % (auto) 81.8 %; Platelet Count 260 K/uL (130-400); RDW Coefficient of Variation 12.9 % (11.5-14.5); RDW Standard Deviation 45.1 fL (36.4-46.3); White Blood Count 6.46 K/uL (4.8-10.8)
[2021-07-20] MEDS ORDERED: dexAMETHasone 6 MG in SYRINGE 0 ML IV SCH (09:00)
[2021-07-20 09:09] LABS: BUN Creatinine Ratio 19.5 (10-20); Calcium 8.5 mg/dl (8.5-10.1); Creatinine Clr Calc Pharmacy 116.5 ml/min; Est GFR (Non-African American) 91.4 ml/min; Magnesium 2.1 mg/dl (1.8-2.4); Potassium 3.9 mmol/L (3.5-5.1)
[2021-07-20] MEDS: ENOXAPARIN INJ 60 MG/0.6 ML SYR SQ SCH ×2 (11:45→22:27)
[2021-07-20] MEDS: REMDESIVIR 100 MG in SODIUM CHLORIDE 0.9% 230 ML IV SCH (11:45)
[2021-07-20] MEDS: SODIUM CHLORIDE 0.9% 10ML FLUSH IV SCH (13:10)
--- NOTE | 2021-07-20 20:40 | Hospitalist Progress Note ---
Date of Service July 20, 2021 Assessment & Plan (1) COVID-19: Plan: COVID day 10 - patient got tested on onset of his symptoms last week - Not vaccinated -Patient remains on nasal cannula. - Continue Decadron - Albuterol inhaler PRN - Azithromycin 500mg then 250 daily - Self rotation/proning therapy -Lovenox 0.5mg/kg BID - can adjust on severity of illness and inflammatory markers as warranted - Diurese if clinically relevant (2) Hypoxia: Plan: Hypoxia with respiratory failture with RR 30, DMA008% on 2LNC - Titrate FIO2- for SPo2 >92% - NC, HFNC, CPAP/BIPAP, Intubation if needed - self rotation therapy (3) Obesity: Plan: Encourgae weight loss behavior and screening/benefit for [facility] CVD benefits (4) Hypokalemia: Plan: 40 PO KCL now - decreased PO intake (5) Hypovolemia: Plan: As above recieved 1L 0.9% saline in the EMD - Continue to encourage Euvolemia - Once Euvolemia obtained follow clinically with Oxyngeation requirements Admission and Anticipated Discharge Date Admission Date: July 19, 2021 Subjective Patient reports breathing better today. Review of Systems Review of Systems: All systems reviewed & are unremarkable except as noted in HPI & below Physical Exam Physical Exam: General: fatigued, awake, alert, no apparent distress Head: Normocephalic, atraumatic ENT: PERRL, EOMI, no pharyngeal exudate, mucous membranes moist Neuro: AAO x 3, speech clear and appropriate, strength intact bilaterally 5/5, sensation intact and equal all extremities and dermatomes, no pronator drift Chest: equal rise and fall of the chest, no accessory muscle use, no heaves or thrills, tachypneic decreased air movement in the bases scattered crackles, on 2LNC, Cardiac: Regular rate and rhythm, telemetry reviewed, skin warm dry, cap refill <3 seconds, peripheral pulses +2 no JVD, no murmur, no edema GI: NABS x 4 quadrants, soft, nontender to palpation, no rebound, guarding or tenderness : Spontaneously voiding, no pain, no CVA tenderness, Extremities: Normal inspection, no peripheral edema or erythema, calfs nontender to palpation Psych: Normal mood and affect Skin: no rash or erythema Results & Data Results & Data ([facility]) Vital Signs (Past 12 Hours) Vital Signs Temp Pulse Pulse Resp BP Pulse Ox 07/20/21 15:32 81 07/20/21 12:33 37.0 C 81 22 123/75 90 07/20/21 09:14 90 PG Care Time/CCT Total # of Minutes Spent Total Time Spent with Patient: Total time spent is greater than 50% in coordination of care (as documented) at patient's floor/unit and/or counseling patient: Coding Level of Care Code 97054 Subseq Hosp Care Lvl 2 Diagnoses COVID-19 U07.1 Hypoxia R09.02 Obesity E66.9 Hypokalemia E87.6 Hypovolemia E86.1 Time Spent (min) 25
[2021-07-20] MEDS: AZITHROMYCIN 250 MG TAB PO SCH (22:26)
[2021-07-20] MEDS: dexAMETHasone 6 MG in SYRINGE 0 ML IV SCH (22:27)
[2021-07-20] MEDS: ALBUTEROL HFA 8 GM INHALER INH PRN (23:29)
[2021-07-21 05:55] LABS: Hematocrit (blood only) 41.9 % (42-52); Hemoglobin 14.2 g/dL (14.0-18.0); Mean Corpuscular Hemoglobin 32.6 pg (25-34); Mean Corpuscular Hgb Conc 33.9 g/dL (32-36); Mean Corpuscular Volume 96.1 fL (80-100); Mean Platelet Volume 9.3 fL (7.4-10.4); Platelet Count 338 K/uL (130-400); RDW Coefficient of Variation 12.9 % (11.5-14.5); RDW Standard Deviation 45.7 fL (36.4-46.3); Red Blood Count 4.36 M/uL (4.7-6.1); White Blood Count 8.65 K/uL (4.8-10.8)
[2021-07-21 06:26] LABS: BUN Creatinine Ratio 23.6 (10-20); Creatinine Clr Calc Pharmacy 114.1 ml/min; Est GFR (African American) 103.4 ml/min; Est GFR (Non-African American) 89.2 ml/min; Magnesium 2.5 mg/dl (1.8-2.4); Potassium 4.3 mmol/L (3.5-5.1)
[2021-07-21 06:29] LABS: C Reactive Protein 5.22 mg/dl (0-0.29)
[2021-07-21 06:37] LABS: Basophils # (auto) 0.04 K/uL (0-0.2); Basophils % (auto) 0.5 %; Immature Granulocytes # (auto) 0.03 K/uL (0.00-0.02); Immature Granulocytes % (auto) 0.3 %; Lymphocytes # (auto) 0.89 K/uL (1.2-3.4); Lymphocytes % (auto) 10.3 %; Monocytes % (auto) 6.9 %; Neutrophils # (auto) 7.09 K/uL (1.4-6.5); RBC Morphology Unremarkable
--- NOTE | 2021-07-21 07:56 | XRay Report ---
XR chest 1V portable HISTORY: 45 years-old Male covid 19 acute cough with viral pneumonia COMPARISON: Chest radiograph 07/19/2021 TECHNIQUE: Portable AP view of the chest FINDINGS: Cardiomediastinal and hilar silhouettes are unchanged. Moderately worsened multifocal bilateral airsp elvia opacities. No pneumothorax or large pleural effusion. No acute fracture. IMPRESSION: Multifocal pneumonia has moderately progressed from comparison. ACT 112: Negative or not required by law. The above report was generated using voice recognition software. It may contain grammatical, syntax o r spelling errors. Electronically signed by: Christian Juarez M.D. 07/21/2021 7:55 AM
[2021-07-21] MEDS: ENOXAPARIN INJ 60 MG/0.6 ML SYR SQ SCH ×2 (12:17→22:09)
[2021-07-21] MEDS: REMDESIVIR 100 MG in SODIUM CHLORIDE 0.9% 230 ML IV SCH (12:17)
[2021-07-21] MEDS: SODIUM CHLORIDE 0.9% 10ML FLUSH IV SCH (12:18)
--- NOTE | 2021-07-21 20:08 | Hospitalist Progress Note ---
Date of Service July 21, 2021 Assessment & Plan (1) COVID-19: Plan: COVID day 10 - patient got tested on onset of his symptoms last week - Not vaccinated -Patient increased to 15 liters nasal cannula overnight but he is not tolerating it. Will place patient on high flow oxygen. - Continue Decadron - Albuterol inhaler PRN - Azithromycin 500mg then 250 daily - Self rotation/proning therapy -Lovenox 0.5mg/kg BID - can adjust on severity of illness and inflammatory markers as warranted - Diurese if clinically relevant will monitor C-R-P. It is improving. Updated . Patient again was told that he needs to prone about 10-15 hours a day. will also update patient. (2) Hypoxia: Plan: Hypoxia with respiratory failture with RR 30, UKU099% on 2LNC - Titrate FIO2- for SPo2 >92% - NC, HFNC, CPAP/BIPAP, Intubation if needed - self rotation therapy (3) Obesity: Plan: Encourgae weight loss behavior and screening/benefit for long-term CVD benefits (4) Hypokalemia: Plan: 40 PO KCL now - decreased PO intake (5) Hypovolemia: Plan: As above recieved 1L 0.9% saline in the EMD - Continue to encourage Euvolemia - Once Euvolemia obtained follow clinically with Oxyngeation requirements Admission and Anticipated Discharge Date Admission Date: July 19, 2021 Subjective Patient reports feeling more short of breath. He reports he having difficulty breathing. He reports he is open to prone. Review of Systems Review of Systems: All systems reviewed & are unremarkable except as noted in HPI & below Physical Exam Physical Exam: General: fatigued, awake, alert, no apparent distress Head: Normocephalic, atraumatic ENT: PERRL, EOMI, no pharyngeal exudate, mucous membranes moist Neuro: AAO x 3, speech clear and appropriate, strength intact bilaterally 5/5, sensation intact and equal all extremities and dermatomes, no pronator drift Chest: equal rise and fall of the chest, no accessory muscle use, no heaves or thrills, tachypneic decreased air movement in the bases scattered crackles, on 2LNC, Cardiac: Regular rate and rhythm, telemetry reviewed, skin warm dry, cap refill <3 seconds, peripheral pulses +2 no JVD, no murmur, no edema GI: NABS x 4 quadrants, soft, nontender to palpation, no rebound, guarding or tenderness : Spontaneously voiding, no pain, no CVA tenderness, Extremities: Normal inspection, no peripheral edema or erythema, calfs nontender to palpation Psych: Normal mood and affect Skin: no rash or erythema Results & Data Results & Data ([facility]) Vital Signs (Past 12 Hours) Vital Signs Temp Pulse Pulse Resp BP Pulse Ox 07/21/21 16:00 73 07/21/21 15:15 87 20 90 07/21/21 13:29 36.6 C 82 22 117/72 93 07/21/21 11:19 84 20 90 07/21/21 08:53 76 07/21/21 08:43 82 20 90 PG Care Time/CCT Total # of Minutes Spent Total Time Spent with Patient: Total time spent is greater than 50% in coordination of care (as documented) at patient's floor/unit and/or counseling patient: Coding Level of Care Code 32840 Subseq Hosp Care Lvl 3 Diagnoses COVID-19 U07.1 Hypoxia R09.02 Obesity E66.9 Hypokalemia E87.6 Hypovolemia E86.1 Time Spent (min) 35
[2021-07-21] MEDS: AZITHROMYCIN 250 MG TAB PO SCH (22:08)
[2021-07-21] MEDS: dexAMETHasone 6 MG in SYRINGE 0 ML IV SCH (22:09)
[2021-07-21] MEDS ORDERED: MELATONIN 3 MG TAB PO PRN (23:07)
[2021-07-21] MEDS ORDERED: MELATONIN 3 MG TAB PO ONE (23:15)
[2021-07-22 06:41] LABS: Hematocrit (blood only) 40.4 % (42-52); Mean Corpuscular Hgb Conc 34.7 g/dL (32-36); Mean Corpuscular Volume 92.4 fL (80-100); Mean Platelet Volume 9.1 fL (7.4-10.4); Platelet Count 382 K/uL (130-400); RDW Coefficient of Variation 12.7 % (11.5-14.5); RDW Standard Deviation 43.4 fL (36.4-46.3); Red Blood Count 4.37 M/uL (4.7-6.1); White Blood Count 8.09 K/uL (4.8-10.8)
[2021-07-22 07:08] LABS: Basophils # (auto) 0.11 K/uL (0-0.2); Basophils % (auto) 1.4 %; Immature Granulocytes # (auto) 0.06 K/uL (0.00-0.02); Immature Granulocytes % (auto) 0.7 %; Lymphocytes # (auto) 1.06 K/uL (1.2-3.4); Lymphocytes % (auto) 13.1 %; Monocytes # (auto) 0.87 K/uL (0.11-0.59); Monocytes % (auto) 10.8 %; Neutrophils # (auto) 5.99 K/uL (1.4-6.5)
[2021-07-22 07:21] LABS: BUN Creatinine Ratio 29.2 (10-20); Est GFR (African American) 111.5 ml/min; Est GFR (Non-African American) 96.2 ml/min; Magnesium 2.5 mg/dl (1.8-2.4); Potassium 4.3 mmol/L (3.5-5.1)
[2021-07-22] MEDS: REMDESIVIR 100 MG in SODIUM CHLORIDE 0.9% 230 ML IV SCH (11:27)
[2021-07-22] MEDS: ENOXAPARIN INJ 60 MG/0.6 ML SYR SQ SCH ×2 (11:28→22:15)
[2021-07-22] MEDS: SODIUM CHLORIDE 0.9% 10ML FLUSH IV SCH (12:28)
--- NOTE | 2021-07-22 16:50 | Hospitalist Progress Note ---
Date of Service July 22, 2021 Assessment & Plan (1) COVID-19: Plan: COVID day 10 - patient got tested on onset of his symptoms last week - Not vaccinated -Patient increased to 15 liters nasal cannula overnight and was not tolerating it on 07/21. Will place patient on high flow oxygen: 07/21 Patient appears stable today 07/22 C-reactive protein has improved. Patient has been proning. - Continue Decadron at 6 mg iV daily - Albuterol inhaler PRN - Azithromycin 500mg then 250 daily - Self rotation/proning therapy -Lovenox 0.5mg/kg BID - can adjust on severity of illness and inflammatory markers as warranted - Diurese if clinically relevant will monitor C-R-P. It is improving. Updated daily (2) Hypoxia: Plan: Hypoxia with respiratory failture - Titrate FIO2- for SPo2 >92% - NC, HFNC, CPAP/BIPAP, Intubation if needed - self rotation therapy (3) Obesity: Plan: Encourgae weight loss behavior and screening/benefit for [facility] CVD benefits (4) Hypokalemia: Plan: 40 PO KCL now - decreased PO intake (5) Hypovolemia: Plan: As above recieved 1L 0.9% saline in the EMD - Continue to encourage Euvolemia - Once Euvolemia obtained follow clinically with Oxyngeation requirements Admission and Anticipated Discharge Date Admission Date: July 19, 2021 Subjective Patient reports feeling better. Review of Systems Review of Systems: All systems reviewed & are unremarkable except as noted in HPI & below Physical Exam Physical Exam: General: fatigued, awake, alert, no apparent distress Head: Normocephalic, atraumatic ENT: PERRL, EOMI, no pharyngeal exudate, mucous membranes moist Neuro: AAO x 3, speech clear and appropriate, strength intact bilaterally 5/5, sensation intact and equal all extremities and dermatomes, no pronator drift Chest: equal rise and fall of the chest, no accessory muscle use, no heaves or thrills, tachypneic decreased air movement in the bases scattered crackles, on high flow oxygen. Cardiac: Regular rate and rhythm, telemetry reviewed, skin warm dry, cap refill <3 seconds, peripheral pulses +2 no JVD, no murmur, no edema GI: NABS x 4 quadrants, soft, nontender to palpation, no rebound, guarding or tenderness : Spontaneously voiding, no pain, no CVA tenderness, Extremities: Normal inspection, no peripheral edema or erythema, calfs nontender to palpation Psych: Normal mood and affect Skin: no rash or erythema Results & Data Results & Data ([facility]) Vital Signs (Past 12 Hours) Vital Signs Temp Pulse Resp BP Pulse Ox 07/22/21 15:47 82 18 114/74 88 L 07/22/21 15:27 70 18 93 07/22/21 11:30 36.5 C 78 18 116/70 95 07/22/21 11:18 86 18 91 07/22/21 09:34 83 18 90 07/22/21 08:20 36.5 C 82 18 115/77 90 07/22/21 07:36 80 18 90 PG Care Time/CCT Total # of Minutes Spent Total Time Spent with Patient: Total time spent is greater than 50% in coordination of care (as documented) at patient's floor/unit and/or counseling patient: Coding Level of Care Code 42060 Subseq Hosp Care Lvl 2 Diagnoses COVID-19 U07.1 Hypoxia R09.02 Obesity E66.9 Hypokalemia E87.6 Hypovolemia E86.1 Time Spent (min) 25
[2021-07-22] MEDS: AZITHROMYCIN 250 MG TAB PO SCH (22:14)
[2021-07-22] MEDS: dexAMETHasone 6 MG in SYRINGE 0 ML IV SCH (22:15)
[2021-07-23 07:07] LABS: Base Excess ABG 0.7 mEq/L (-9-1.8); HCO3 ABG 23 mmol/L (19-24); Oxygen Saturation ABG 93.4 % (90-95); PCO2 ABG 30 mmHg (35-46); PO2 ABG 62 mmHg (80-95)
[2021-07-23 07:14] LABS: Alanine Aminotransferase 188 U/L (12-78); Aspartate Aminotransferase 117 U/L (15-37)
[2021-07-23 07:16] LABS: Allen Test Pos (Pos)
[2021-07-23] MEDS: ALBUTEROL HFA 8 GM INHALER INH PRN (08:43)
[2021-07-23] MEDS ORDERED: Nursing to Pharmacy Communication SCH (09:15)
[2021-07-23] MEDS: dexAMETHasone 6 MG in SYRINGE 0 ML IV SCH (12:19)
[2021-07-23] MEDS: REMDESIVIR 100 MG in SODIUM CHLORIDE 0.9% 230 ML IV SCH (12:19)
[2021-07-23] MEDS: ENOXAPARIN INJ 60 MG/0.6 ML SYR SQ SCH ×2 (12:20→22:08)
[2021-07-23] MEDS: SODIUM CHLORIDE 0.9% 10ML FLUSH IV SCH (12:21)
--- NOTE | 2021-07-23 12:42 | Hospitalist Progress Note ---
Date of Service July 23, 2021 Assessment & Plan (1) COVID-19: Plan: Initial positive test on first day of symptoms (believe on 07/11/2021). Not vaccinated. - Continue remdesivir (End date: 07/23/2021) - Continue azithromycin (End date: 07/23/2021) - Self rotation/proning therapy - Continue Decadron 6 mg IV daily (End date: 07/28 for 10 days) -> Discussed tocilizumab with pharmacy and pulmonary. He is Day 4, but had decompensation on Day 3. His CRP is < 7.5, but was > 7.5 on admission. Pulmonary felt that given his CRP improvement, he would not benefit. (2) DVT prophylaxis: Plan: Lovenox 50 mg SQ BID Admission and Anticipated Discharge Date Admission Date: July 19, 2021 Subjective Stable today. No shortness of breath while lying flat. No cough. However, weak and shortness of breath is bad enough that he didn't feel well enough to sit up. Physical Exam Constitutional: WD/WN, vitals as above Eyes: EOM intact bilaterally; no conjunctival abnormality ENMT: external ear and nose normal, oropharynx normal Neck: trachea midline, no thyromegaly normal visual inspection Respiratory: + labored breathing and + tachypneic; no respiratory distress and no cough Auscultation: + crackles (L > R) Cardiovascular: RRR, no murmur, no edema Gastrointestinal (Abdomen): Inspection/Auscultation: abdomen normal to inspection; abdomen not distended Musculoskeletal: no cyanosis or clubbing, extremities motor strength 5/5 Skin: no rashes, warm and dry Neurologic: moves all extremities and awake Psychiatric: Orientation: alert, oriented to person and cooperative Results & Data Results & Data ([facility]) Vital Signs (Past 12 Hours) Vital Signs Temp Pulse Resp BP Pulse Ox 07/23/21 12:00 37.2 C 108 H 122/72 91 07/23/21 11:02 102 H 20 91 07/23/21 08:44 93 H 26 H 91 07/23/21 08:09 36.7 C 108 H 21 88 L 07/23/21 02:51 36.9 C 99 H 16 127/83 90 PG Care Time/CCT Total # of Minutes Spent Total Time Spent with Patient: Total time spent is greater than 50% in coordin ation of care (as documented) at patient's floor/unit and/or counseling patient: Coding Level of Care Code 28373 Subseq Hosp Care Lvl 3 Diagnoses COVID-19 U07.1 DVT prophylaxis Z29.9
[2021-07-23] MEDS: AZITHROMYCIN 250 MG TAB PO SCH (22:08)
[2021-07-24 08:14] LABS: Hematocrit (blood only) 39.1 % (42-52); Hemoglobin 13.7 g/dL (14.0-18.0); Mean Corpuscular Hemoglobin 32.5 pg (25-34); Mean Corpuscular Volume 92.7 fL (80-100); Mean Platelet Volume 9.3 fL (7.4-10.4); Platelet Count 438 K/uL (130-400); RDW Coefficient of Variation 12.6 % (11.5-14.5); RDW Standard Deviation 42.5 fL (36.4-46.3); Red Blood Count 4.22 M/uL (4.7-6.1); White Blood Count 12.52 K/uL (4.8-10.8)
[2021-07-24 08:44] LABS: Albumin Level 2.9 gm/dl (3.4-5.0); BUN Creatinine Ratio 24.9 (10-20); Est GFR (African American) 104.7 ml/min; Est GFR (Non-African American) 90.3 ml/min; Magnesium 2.5 mg/dl (1.8-2.4); Potassium 3.9 mmol/L (3.5-5.1)
[2021-07-24 08:47] LABS: Albumin Globulin Ratio 0.7 (0.9-2); Bilirubin,Total 1.1 mg/dl (0.2-1); Globulin 4.3 gm/dl (2.5-4.0); Total Protein 7.2 gm/dl (6.4-8.2)
[2021-07-24] MEDS: dexAMETHasone 6 MG in SYRINGE 0 ML IV SCH (12:30)
[2021-07-24] MEDS: ENOXAPARIN INJ 60 MG/0.6 ML SYR SQ SCH ×2 (12:30→22:12)
--- NOTE | 2021-07-24 15:18 | Hospitalist Progress Note ---
Date of Service July 24, 2021 Assessment & Plan (1) COVID-19: Plan: Initial positive test on first day of symptoms (believe on 07/11/2021). Not vaccinated. Pneumonia due to coronavirus disease 2019. - Finished remdesivir (End date: 07/23/2021) - Finished azithromycin (End date: 07/23/2021) - Self rotation/proning therapy - Continue Decadron 6 mg IV daily (End date: 07/28 for 10 days) -> Discussed tocilizumab with pharmacy and pulmonary. He is Day 4, but had decompensation on Day 3. His CRP is < 7.5, but was > 7.5 on admission. Pulmonary felt that given his CRP improvement, he would not benefit. -> Improved today. Lowering his HFNC. (2) DVT prophylaxis: Plan: Lovenox 50 mg SQ BID Admission and Anticipated Discharge Date Admission Date: July 19, 2021 Subjective Improved today. No shortness of breath while lying flat. No cough. Some increased energy. No appetite yet. Reports no fevers/chills, chest pain, abdominal pain, nausea, or vomiting. Physical Exam Constitutional: WD/WN, vitals as above Eyes: EOM intact bilaterally; no conjunctival abnormality ENMT: external ear and nose normal, oropharynx normal Neck: trachea midline, no thyromegaly normal visual inspection Respiratory: + labored breathing and + tachypneic; no respiratory distress and no cough Auscultation: + crackles (L > R) Cardiovascular: RRR, no murmur, no edema Gastrointestinal (Abdomen): Inspection/Auscultation: abdomen normal to inspection; abdomen not distended Musculoskeletal: no cyanosis or clubbing, extremities motor strength 5/5 Skin: no rashes, warm and dry Neurologic: moves all extremities and awake Psychiatric: Orientation: alert, oriented to person and cooperative Results & Data Results & Data ([facility]) Vital Signs (Past 12 Hours) Vital Signs Temp Pulse Pulse Resp BP Pulse Ox 07/24/21 12:31 36.6 C 96 H 18 109/72 97 07/24/21 08:50 36.8 C 85 20 110/68 94 07/24/21 07:36 70 07/24/21 07:09 84 22 91 07/24/21 04:04 36.6 C 80 20 108/71 94 PG Care Time/CCT Total # of Minutes Spent Total Time Spent with Patient: Total time spent is greater than 50% in coordination of care (as documented) at patient's floor/unit and/or counseling patient: Coding Level of Care Code 22663 Subseq Hosp Care Lvl 2 Diagnoses COVID-19 U07.1 DVT prophylaxis Z29.9
[2021-07-25] MEDS: ENOXAPARIN INJ 60 MG/0.6 ML SYR SQ SCH ×2 (11:36→21:06)
[2021-07-25] MEDS: dexAMETHasone 6 MG in SYRINGE 0 ML IV SCH (11:38)
--- NOTE | 2021-07-25 12:37 | Hospitalist Progress Note ---
Date of Service July 25, 2021 Assessment & Plan (1) COVID-19: Plan: Initial positive test on first day of symptoms (believe on 07/11/2021). Not vaccinated. Pneumonia due to coronavirus disease 2018. - Finished remdesivir (End date: 07/23/2021) - Finished azithromycin (End date: 07/23/2021) - Self rotation/proning therapy - Continue Decadron 6 mg IV daily (End date: 07/28 for 10 days) -> Discussed tocilizumab with pharmacy and pulmonary. His CRP was < 7.5, but was > 7.5 on admission. Pulmonary felt that given his CRP improvement, he would not benefit. -> Improved today. Off high-flow, and now on 15L. Good O2 sat while resting, but does dip with exertion. (2) DVT prophylaxis: Plan: Lovenox 50 mg SQ BID Admission and Anticipated Discharge Date Admission Date: July 19, 2021 Subjective Improved today. No shortness of breath while lying flat. No cough. Some increased energy & appetite. Does get shortness of breath with moving. Reports no fevers/chills, chest pain, abdominal pain, nausea, or vomiting. Physical Exam Constitutional: WD/WN, vitals as above Eyes: EOM intact bilaterally; no conjunctival abnormality ENMT: external ear and nose normal, oropharynx normal Neck: trachea midline, no thyromegaly normal visual inspection Respiratory: no respiratory distress, no labored breathing and no cough Auscultation: lungs clear to auscultation bilaterally Cardiovascular: RRR, no murmur, no edema Gastrointestinal (Abdomen): Inspection/Auscultation: abdomen normal to inspection; abdomen not distended Musculoskeletal: no cyanosis or clubbing, extremities motor strength 5/5 Skin: no rashes, warm and dry Neurologic: moves all extremities and awake Psychiatric: Orientation: alert, oriented to person and cooperative Results & Data Results & Data ([facility]) Vital Signs (Past 12 Hours) Vital Signs Temp Pulse Pulse Resp BP Pulse Ox 07/25/21 07:29 36.4 C L 82 20 109/72 92 07/25/21 07:16 73 07/25/21 03:38 36.4 C L 80 16 111/72 87 L PG Care Time/CCT Total # of Minutes Spent Total Time Spent with Patient: Total time spent is greater than 50% in coordination of care (as documented) at patient's floor/unit and/or counseling patient: Coding Level of Care Code 13389 Subseq Hosp Care Lvl 2 Diagnoses COVID-19 U07.1 DVT prophylaxis Z29.9
[2021-07-26] MEDS: dexAMETHasone 6 MG in SYRINGE 0 ML IV SCH (11:50)
[2021-07-26] MEDS: ENOXAPARIN INJ 60 MG/0.6 ML SYR SQ SCH (11:50)
--- NOTE | 2021-07-26 15:54 | Hospitalist Progress Note ---
Date of Service July 26, 2021 Assessment & Plan (1) COVID-19: Plan: Initial positive test on first day of symptoms (believe on 07/11/2021). Not vaccinated. Pneumonia due to coronavirus disease 2019. - Finished remdesivir (End date: 07/23/2021) - Finished azithromycin (End date: 07/23/2021) - Self rotation/proning therapy - Continue Decadron 6 mg IV daily (End date: 07/28 for 10 days) - Discussed tocilizumab with pharmacy and pulmonary. His CRP was < 7.5, but was > 7.5 on admission. Pulmonary felt that given his CRP improvement, he would not benefit. -> Improved today. Off high-flow, and now on 12L. Good O2 sat while resting, but did fall to 75% walking to the bathroom and back. (2) DVT prophylaxis: Plan: Lovenox 50 mg SQ BID Admission and Anticipated Discharge Date Admission Date: July 19, 2021 Subjective Improved today. No shortness of breath while lying flat. No cough. Some increased energy & appetite. We walked to the bedside commode and back, and he was quite short of breath. Reports no fevers/chills, chest pain, abdominal pain, nausea, or vomiting. Physical Exam Constitutional: WD/WN, vitals as above Eyes: EOM intact bilaterally; no conjunctival abnormality ENMT: external ear and nose normal, oropharynx normal Neck: trachea midline, no thyromegaly normal visual inspection Respiratory: no respiratory distress, no labored breathing and no cough Auscultation: lungs clear to auscultation bilaterally Cardiovascular: RRR, no murmur, no edema Gastrointestinal (Abdomen): Inspection/Auscultation: abdomen normal to inspection; abdomen not distended Musculoskeletal: no cyanosis or clubbing, extremities motor strength 5/5 Skin: no rashes, warm and dry Neurologic: moves all extremities and awake Psychiatric: Orientation: alert, oriented to person and cooperative Results & Data Results & Data ([facility]) Vital Signs (Past 12 Hours) Vital Signs Temp Pulse Resp BP Pulse Ox Pulse Ox 07/26/21 08:49 36.5 C 77 16 107/71 90 07/26/21 05:21 94 PG Care Time/CCT Total # of Minutes Spent Total Time Spent with Patient: Total time spent is greater than 50% in coordination of care (as documented) at patient's floor/unit and/or counseling patient: Coding Level of Care Code 53084 Subseq Hosp Care Lvl 2 Diagnoses COVID-19 U07.1 DVT prophylaxis Z29.9
[2021-07-27] MEDS: ENOXAPARIN INJ 60 MG/0.6 ML SYR SQ SCH ×3 (00:17→23:03)
[2021-07-27 08:55] LABS: Hematocrit (blood only) 40.1 % (42-52); Mean Corpuscular Hemoglobin 31.8 pg (25-34); Mean Corpuscular Hgb Conc 34.9 g/dL (32-36); Mean Corpuscular Volume 91.1 fL (80-100); Mean Platelet Volume 8.9 fL (7.4-10.4); Platelet Count 658 K/uL (130-400); RDW Coefficient of Variation 12.6 % (11.5-14.5); RDW Standard Deviation 42.3 fL (36.4-46.3)
[2021-07-27 09:36] LABS: BUN Creatinine Ratio 27.4 (10-20); Calcium 9.3 mg/dl (8.5-10.1); Creatinine Clr Calc Pharmacy 106.6 ml/min; Est GFR (African American) 96.4 ml/min; Est GFR (Non-African American) 83.2 ml/min; Magnesium 2.1 mg/dl (1.8-2.4)
--- NOTE | 2021-07-27 11:43 | Hospitalist Progress Note ---
Date of Service July 27, 2021 Assessment & Plan (1) COVID-19: Plan: Initial positive test on first day of symptoms (believe on 07/11/2021). Not vaccinated. Pneumonia due to coronavirus disease 2019. - Finished remdesivir (End date: 07/23/2021) - Finished azithromycin (End date: 07/23/2021) - Continue Decadron 6 mg IV daily (End date: 07/28 for 10 days) -> Improved today. Down to 6L at rest. Still with desaturation with exertion. (2) DVT prophylaxis: Plan: Lovenox 50 mg SQ BID Admission and Anticipated Discharge Date Admission Date: July 19, 2021 Subjective A bit discouraged today as he reports that he thought someone had to turn up his O2. More encouraged when I said he moved from 12L yesterday to 6L today. No shortness of breath with rest, but with exertion. Reports no fevers/chills, chest pain, abdominal pain, nausea, or vomiting. Physical Exam Constitutional: WD/WN, vitals as above Eyes: EOM intact bilaterally; no conjunctival abnormality ENMT: external ear and nose normal, oropharynx normal Neck: trachea midline, no thyromegaly normal visual inspection Respiratory: no respiratory distress, no labored breathing and no cough Auscultation: lungs clear to auscultation bilaterally Cardiovascular: RRR, no murmur, no edema Gastrointestinal (Abdomen): Inspection/Auscultation: abdomen normal to inspection; abdomen not distended Musculoskeletal: no cyanosis or clubbing, extremities motor strength 5/5 Skin: no rashes, warm and dry Neurologic: moves all extremities and awake Psychiatric: Orientation: alert, oriented to person and cooperative Results & Data Results & Data ([facility]) Vital Signs (Past 12 Hours) Vital Signs Temp Pulse Resp BP Pulse Ox 07/27/21 07:50 36.6 C 73 16 104/70 91 07/27/21 05:00 36.7 C 76 20 119/81 89 L 07/27/21 01:56 94 07/27/21 00:00 36.5 C 84 14 113/71 91 PG Care Time/CCT Total # of Minutes Spent Total Time Spent with Patient: Total time spent is greater than 50% in coordination of care (as documented) at patient's floor/unit and/or counseling patient: Coding Level of Care Code 78860 Subseq Hosp Care Lvl 2 Diagnoses COVID-19 U07.1 DVT prophylaxis Z29.9
[2021-07-27] MEDS: dexAMETHasone 6 MG in SYRINGE 0 ML IV SCH (13:11)
[2021-07-28] MEDS: ENOXAPARIN INJ 60 MG/0.6 ML SYR SQ SCH ×2 (11:06→22:04)
[2021-07-28] MEDS: dexAMETHasone 6 MG in SYRINGE 0 ML IV SCH (11:07)
--- NOTE | 2021-07-28 16:08 | Hospitalist Progress Note ---
Date of Service July 28, 2021 Assessment & Plan (1) COVID-19: Plan: Initial positive test on first day of symptoms (believe on 07/11/2021). Not vaccinated. Pneumonia due to coronavirus disease 2019. - Finished remdesivir (End date: 07/23/2021) - Finished azithromycin (End date: 07/23/2021) - Continue Decadron 6 mg IV daily (End date: 07/28 for 10 days) -> Improved today. Down to 4L at rest. Still with desaturation with exertion, but less. (2) DVT prophylaxis: Plan: Lovenox 50 mg SQ BID Admission and Anticipated Discharge Date Admission Date: July 19, 2021 Subjective Happier today. Feels he is making progress and has more energy. Down to 4L at rest, but does desaturate with exertion. Physical Exam Constitutional: WD/WN, vitals as above Eyes: EOM intact bilaterally; no conjunctival abnormality ENMT: external ear and nose normal, oropharynx normal Neck: trachea midline, no thyromegaly normal visual inspection Respiratory: no respiratory distress, no labored breathing and no cough Auscultation: lungs clear to auscultation bilaterally Cardiovascular: RRR, no murmur, no edema Gastrointestinal (Abdomen): Inspection/Auscultation: abdomen normal to inspection; abdomen not distended Musculoskeletal: no cyanosis or clubbing, extremities motor strength 5/5 Skin: no rashes, warm and dry Neurologic: moves all extremities and awake Psychiatric: Orientation: alert, oriented to person and cooperative Results & Data Results & Data ([facility]) Vital Signs (Past 12 Hours) Vital Signs Temp Pulse Resp BP Pulse Ox 07/28/21 15:49 91 07/28/21 15:34 36.8 C 88 18 100/68 89 L 07/28/21 11:47 92 07/28/21 11:35 96 07/28/21 07:58 36.8 C 88 18 107/72 89 L PG Care Time/CCT Total # of Minutes Spent Total Time Spent with Patient: Total time spent is greater than 50% in coordination of care (as documented) at patient's floor/unit and/or counseling patient: Coding Level of Care Code 97682 Subseq Hosp Care Lvl 2 Diagnoses COVID-19 U07.1 DVT prophylaxis Z29.9
[2021-07-29] MEDS: ENOXAPARIN INJ 60 MG/0.6 ML SYR SQ SCH (10:53)
[2021-07-29 11:11] LABS: Hematocrit (blood only) 40.9 % (42-52); Hemoglobin 14.2 g/dL (14.0-18.0); Mean Corpuscular Hemoglobin 31.9 pg (25-34); Mean Corpuscular Hgb Conc 34.7 g/dL (32-36); Mean Corpuscular Volume 91.9 fL (80-100); Mean Platelet Volume 9.1 fL (7.4-10.4); Platelet Count 574 K/uL (130-400); RDW Coefficient of Variation 12.5 % (11.5-14.5); RDW Standard Deviation 42.1 fL (36.4-46.3); Red Blood Count 4.45 M/uL (4.7-6.1)
[2021-07-29 11:40] LABS: Albumin Level 2.7 gm/dl (3.4-5.0); BUN Creatinine Ratio 22.9 (10-20); Calcium 8.7 mg/dl (8.5-10.1); Creatinine Clr Calc Pharmacy 109.7 ml/min; Est GFR (African American) 99.8 ml/min; Est GFR (Non-African American) 86.1 ml/min; Magnesium 2.3 mg/dl (1.8-2.4); Potassium 3.5 mmol/L (3.5-5.1)
[2021-07-29 11:43] LABS: Albumin Globulin Ratio 0.7 (0.9-2); Bilirubin,Total 0.5 mg/dl (0.2-1); Total Protein 6.7 gm/dl (6.4-8.2)
--- NOTE | 2021-07-29 13:05 | Hospitalist Progress Note ---
Date of Service July 29, 2021 Assessment & Plan (1) COVID-19: Plan: Initial positive test on first day of symptoms (believe on 07/11/2021). Not vaccinated. Pneumonia due to coronavirus disease 2018. - Finished remdesivir (End date: 07/23/2021) - Finished azithromycin (End date: 07/23/2021) - Finished Decadron 6 mg IV daily (End date: 07/28 for 10 days) -> Improved today. Down to room air at rest. Still with desaturation with exertion, but less. On 6L, he mostly stayed ~88%. Will do 2-step to hopefully arrange home O2 for tomorrow. (2) DVT prophylaxis: Plan: Lovenox 50 mg SQ BID Admission and Anticipated Discharge Date Admission Date: July 19, 2021 Subjective Feeling good today. Even going on room air at times. Otherwise stable. Reports no fevers/chills, chest pain, shortness of breath, abdominal pain, nausea, or vomiting. Physical Exam Constitutional: WD/WN, vitals as above Eyes: EOM intact bilaterally; no conjunctival abnormality ENMT: external ear and nose normal, oropharynx normal Neck: trachea midline, no thyromegaly normal visual inspection Respiratory: no respiratory distress, no labored breathing and no cough Auscultation: lungs clear to auscultation bilaterally Cardiovascular: RRR, no murmur, no edema Gastrointestinal (Abdomen): Inspection/Auscultation: abdomen normal to inspection; abdomen not distended Musculoskeletal: no cyanosis or clubbing, extremities motor strength 5/5 Skin: no rashes, warm and dry Neurologic: moves all extremities and awake Psychiatric: Orientation: alert, oriented to person and cooperative Results & Data Results & Data ([facility]) Vital Signs (Past 12 Hours) Vital Signs Temp Pulse Resp BP Pulse Ox 07/29/21 11:01 92 07/29/21 08:27 36.7 C 76 16 121/81 92 PG Care Time/CCT Total # of Minutes Spent Total Time Spent with Patient: Total time spent is greater than 50% in coordination of care (as documented) at patient's floor/unit and/or counseling patient: Coding Level of Care Code 97184 Subseq Hosp Care Lvl 2 Diagnoses COVID-19 U07.1 DVT prophylaxis Z29.9
--- NOTE | 2021-07-29 17:32 | Discharge Summary ---
Date of Service July 29, 2021 Admission HPI Per Admitting Provider 45 YOM with no past medical history reported, not on any medications at home. Surgical history of rotator cuff repair. Patient comes in today after testing (+) for COVID on the . Patient is not vaccinated. He feels that he contracted the virus on his trip to [facility] for the race last Friday. The patient lives at home with his and two kids. He reports that his is feeling Ok and one of their kids is sick. He comes in today for increased dyspnea and fatigue, with decreased oral intake. He continues to have fevers at home, and body aches, with productive cough. He has had diarrhea which has resolved. Patient does not smoke or drink and as above on no medications at home. We discussed therapeutic options to include Remdisivir and is aware that with his time of onset he may not have any therapeutic effect. Patient wishes to receive Remdisivir. We discussed self rotation and proning therapy. Will continue his Decardorn, will add on Azithromycin, albuterol inhalers. Inflammatory markers including PCT have been sent. Patient is not vaccinated and is COVID POSITIVE on his admission. Principal Diagnosis Covid-19 pneumonia Discharge Exam Constitutional WD/WN, vitals as above Eyes EOM intact bilaterally; no conjunctival abnormality ENMT external ear and nose normal, oropharynx normal Neck trachea midline, no thyromegaly normal visual inspection Respiratory no respiratory distress, no labored breathing and no cough Auscultation: lungs clear to auscultation bilaterally Cardiovascular RRR, no murmur, no edema Gastrointestinal (Abdomen) Inspection/Auscultation: abdomen normal to inspection; abdomen not distended Musculoskeletal no cyanosis or clubbing, extremities motor strength 5/5 Skin no rashes, warm and dry Neurologic moves all extremities and awake Psychiatric Orientation: alert, oriented to person and cooperative Discharge Data Allergies Allergy/AdvReac Type Severity Reaction Status Date / Time Sulfa (Sulfonamide Allergy Unknown HIVES AND Verified 07/19/21 13:18 Antibiotics) FINGER SWELLING Consultations 07/19/21 13:01 ED Decision to Admit Stat Hospital Course (1) COVID-19: Initial positive test on first day of symptoms (believe on 07/11/2021). Not vaccinated. Pneumonia due to coronavirus disease 2019. - Finished remdesivir (End date: 07/23/2021) - Finished azithromycin (End date: 07/23/2021) - Finished Decadron 6 mg IV daily (End date: 07/28 for 10 days) -> Improved today. Down to 1L at rest & 5L with exertion. Ready for discharge. Home O2 arranged. (2) DVT prophylaxis: Lovenox 50 mg SQ BID Total Time Total Time Spent Total Time Spent (In Minutes): 35 Discharge Plan Discharge Items Patient Disposition: Home - Self-Care Reason For Visit: SOB Discharge Diagnosis: Covid-19 pneumonia Activity: Per Instructions section Activity Comment: Start slow and gradually increase distances. Trial 1-2 stairs to start. Non-emergency contact: Primary Care Provider Call non-emergency contact if: your symptoms worsen Follow-up/Referrals: PCP,NO [Primary Care Provider] - Diet: Regular Addtl Attending Provider Instructions: Mr. Fraga, Prabhu were admitted to the hospital with Covid-19 pneumonia. This has been a very tough disease because any one person can get very sick or have basically no symptoms. Unfortunately, you ended up on the sicker side. Luckily, you never needed a breathing tube, but at the worst, you were on 50 liters of oxygen per minute. With time, your lungs are healing from the infection. Your energy returned a few days ago, and your oxygen levels have improved each day we've worked together. Today, you are only need 1 liter at rest and 5 liters with exertion. These levels are achievable with a home oxygen concentrator, and so we feel you are safe and ready to go home. You don't need any new medications on discharge, but you will continue to heal over the coming weeks. Start slow and gradually your activity. Gradually increas e walking distances. At first, you will probably only be able to walk short distances around the house. Gradually increase this as you feel stronger and better. Trial 1-2 stairs to start; do not try to take on the entire flight. I am delighted that you are feeling well enough to go home. I wish you a speedy recovery. You will be in my thoughts! Pending Studies at Discharge: No Stand-Alone Forms: [facility], Smoking Cessation Medications and DC Order Prescriptions: Discontinued Ketorolac Tromethamine (TORADOL) 10 MG tablet 10 mg PO Q8 PRN (Reason: Pain) Qty: 15 RF: 0 OXYCODONE/ACETAMINOPHEN 5MG/325MG (PERCOCET 5MG/325MG) tablet 1 - 2 tabs PO Q6 PRN (Reason: Pain) Qty: 40 RF: 0 Discharge Orders: Discharge Order (Routine); Ordered 07/29/21 Ordered By: David Cuevas/Other Patient Handouts: Caring for Someone Who Has COVID-19, COVID-19 Home Care Admission Data Admit Date/Time: 07/19/21 13:20 Attending Provider: David Rodriguez Admit Provider: Richie Palomares Primary Care Provider: PCP,NO Other Providers: David Rodriguez ; Richie Palomares Other Interventions: Discharge Summary Assessment (RN) Last Done: 07/29/21 15:07 Coding Level of Care Code D/C DAY MANAGEMENT >30 MINS Diagnoses COVID-19 U07.1 DVT prophylaxis Z29.9
== END 2021-07-29 16:20 | disposition home or self-care (01) | DRG 177 ==
LOC: ED 10:22 → MERGE 10:22 → EDINP 13:20 → SUATTDRO 13:20 → 2N 22:33 → 3W 07-27 05:42